=== PATIENT | female | born 1935 | race Two or more races ===

== ENCOUNTER → 2022-04-30 14:51 | Outpatient (REF) | payer MEDICARE, SELFPAY ==
--- NOTE | 2022-04-30 15:00 | CA_ITS ---
Transthoracic Echocardiogram Patient (Last, First, Middle): ALETHA BARRAGAN, Gender: Female Date of : 1935 Age: 86 Procedure Date: 04/30/2022 Procedure Type: Transthoracic Echocardiogram Location: OP Height: 157.48 cm Weight: 57.15 kg BSA: 1.57 m2 Heart Rate: 65 bpm BP: 130 / 60 mmHg Waterproofing Mixer: ZULEIKA Estrada MD: Leta Posey MD Cloth Shearing Supervisor: Sami Ho MD Symptoms: Stroke Study Quality: Adequate ECG Rhythm: Sinus Conclusions: - 1. Mildly reduced LV systolic function with LVEF of 45-50% with grade 1 diastolic dysfunction 2. Mild mitral regurgitation 3. Normal RV systolic pressure 4. No gross pericardial effusion Findings Left Ventricle Normal left ventricular cavity size. There is normal left ventricular wall thickness. The left ventricular systolic function is mildly decreased. The visually estimated ejection fraction is between 45-50%. There is paradoxical septal motion consistent with a left bundle branch block. Spectral Doppler is indicative of an impaired relaxation filling pattern. E/E prime ratio is <8, consistent with normal filling pressures. Evidence suggests grade I (mild) diastolic dysfunction. Right Ventricle Normal right ventricular cavity size and systolic function. Atria The left atrium is normal in size. There is no evidence of interatrial shunt. The right atrium is normal in size. Aortic Valve Normal aortic valve structure and function. There is no aortic valve stenosis. There is no aortic valve regurgitation. Mitral Valve There is mild anterior and posterior mitral leaflet thickening. There is mild mitral valve regurgitation. There is no mitral valve stenosis. Pulmonic Valve The pulmonic valve was not well visualized. Tricuspid Valve Likely normal tricuspid valve structure and function. There is trace tricuspid valve regurgitation. The right ventricular systolic pressure is normal. The right ventricular systolic pressure is 19 mmHg. Normal right atrial pressure. There is no evidence of pulmonary hypertension. Great Vessels All visible segments of the aorta are normal in size. The pulmonary artery was not well visualized. Venous The inferior vena cava is normal in size and collapses greater than 50% with inspiration. Pericardium/Pleural There is no evidence of pericardial effusion. Prior Study Comparison No prior study available for comparison. Measurements 2D Linear Measurements IVSd: 1.16 0.6-0.9/0.6-1.0 cm LVIDd: 5.02 3.9-5.3/4.2-5.9 cm LVIDd Index: 3.20 2.4-3.2/2.2-3.1 cm/m2 LVIDs: 3.64 2.0-3.6 cm LVPWd: 1.02 0.7-1.1 cm LA Diam: 3.80 2.7-3.8/3.0-4.0 cm LAIDs Index: 2.42 1.5-2.3 cm/m2 LV Mass: 256.61 67-162/88-224 g LV Mass Index: 163.45 43-95/49-115 g/m2 LVOT Diam: 1.90 3.0+(-)1.3 cm 2D Systolic Function EF 4C: 50.50 >55% EF 2C: 56.20 >55% EF BiP: 49.60 >55% Mitral Valve MV Pk E: 0.65 MV PK A: 1.02 MV Decel Time: 246.00 E/A: 0.60 E'Lateral: 5.61 E'Medial: 4.13 E/E' Med: 15.70 E/E' Lat: 11.50 PHT: 72.00 MVA PHT: 3.06 Decel [place]: 2.62 Aortic Valve AoV Pk [place]: 1.45 AoV Mn [place]: 1.06 AoV VTI: 0.36 AoV Pk Grad: 8.00 Aov Mn Grad: 5.00 RICHIE Cont.VTI: 2.05 LVOT LVOT Pk [place]: 0.98 LVOT Mn [place]: 0.71 LVOT VTI: 0.26 LVOT Pk Grad: 4.00 LVOT Mn Grad: 2.00 LVOT Diam: 1.90 LVOT Area: 2.84 Diastolic Function MV Pk E: 0.65 MV Pk A: 1.02 E/A: 0.60 E'Medial: 4.13 E/E' Med: 15.70 E' Laterial: 5.61 E/E' Lat: 11.50 Right Ventricle TAPSE (mm): 21.30 TVS' [place]: 12.00 Tricuspid Valve TR Pk [place]: 2.02 TR Pk Grad: 16.00 RA Press: 3.00 RVSP: 19.00 Great Vessels Aorta Sinus of Valsalva: 3.20 2.0-3.5 cm Ao Asc: 3.00 2.1-3.4 cm Pulmonary Valve PV Pk [place]: 0.91 Peak PV Grad: 3.00 Updated in Other Vendor System with Status of Final Sami Ho MD electronically signed on 05/01/2022 11:42:12 AM with status of Final
== END ==
LOC: HO.CARD 14:51
PROVIDERS: Visit Provider Psychiatry & Neurology Neurology
DX: I63.9 Cerebral infarction, unspecified (principal); F03.90 Unspecified dementia, unspecified severity, without behavioral disturbance, psychotic disturbance, mood disturbance, and anxiety
CPT/HCPCS: 93306